=== PATIENT | male | born 1985 | race Caucasian/White ===

== ENCOUNTER → 2024-12-26 08:05 | Outpatient (CLI) | payer BC, SELFPAY ==
--- NOTE | ~2024-12-26 | XR_ITS ---
EXAMINATION: XR scapula RT, 12/26/2024 8:16 CDT HISTORY: RT post shoulder pain, jerking injury 10x days ago COMPARISON: No comparisons available. Findings: No acute fracture or malalignment. No significant degenerative changes. Soft tissues unremarkable. Impression: No acute fracture or malalignment. Reviewed, dictated and finalized at location P. Impression: No acute fracture or malalignment.
--- NOTE | ~2024-12-26 | XR_ITS ---
XR cervical spine min 6V Indication: neck, rt shoulder pain, jerking injury 10x days ago Comparison: None Findings: The vertebral heights are intact. No fracture or subluxation. The disc heights are intact. Soft tissues unremarkable Impression: No acute abnormality. Reviewed, dictated and finalized at location P. Impression: No acute abnormality.
== END ==
LOC: EXPCRAD 08:06
PROVIDERS: PCP Family Medicine; Visit Provider Family Medicine
DX: M89.8X1 Other specified disorders of bone, shoulder (principal); M54.2 Cervicalgia
CPT/HCPCS: 72052; 73010